=== PATIENT | male | born 1990 | race American Indian/Alaskan Native ===

== ENCOUNTER 2017-08-10 06:12 | Emergency (ER) | payer MEDICAID ==
[2017-08-10] MEDS ORDERED: BACTRIM DS PO ONE (14:40)
[2017-08-10] MEDS ORDERED: TYLENOL PO ONE (14:40)
--- NOTE | 2017-08-10 14:41 | Emergency Department Report ---
ED General Adult HPI - General Chief complaint: Psych Stated complaint: MH Time Seen by Provider: 08/10/17 14:19 Source: patient Mode of arrival: Ambulatory Limitations: No Limitations - History of Present Illness Initial comments: Patient is a 27-year-old male past medical history of depression who presents with suicidal ideation. Patient states that he was feeling depressed today and that he was planning to kill himself. His plan was to go walk in front of traffic. Patient states that he is hearing some voices but he doesn't know what they're saying. Patient has no history of schizophrenia or bipolar disorder. - Related Data Allergies Allergy/AdvReac Type Severity Reaction Status Date / Time Penicillins Allergy Swelling Verified 08/10/17 06:58 ED Review of Systems ROS: Stated complaint: MH Other details as noted in HPI Constitutional: denies: chills, fever Eyes: denies: eye pain, eye discharge, vision change ENT: denies: ear pain, throat pain Respiratory: denies: cough, shortness of breath, wheezing Cardiovascular: denies: chest pain, palpitations Endocrine: no symptoms reported Gastrointestinal: denies: abdominal pain, nausea, diarrhea Genitourinary: denies: urgency, dysuria Musculoskeletal: denies: back pain, joint swelling, arthralgia Skin: denies: rash, lesions Neurological: denies: headache, weakness, paresthesias Psychiatric: depression, suicidal thoughts. denies: anxiety, homicidal thoughts Hematological/Lymphatic: denies: easy bleeding, easy bruising ED Past Medical Hx - Past Medical History Previous Medical History?: Yes Hx Psychiatric Treatment: Yes (depression) - Surgical History Past Surgical History?: No - Social History Smoking Status: Current Every Day Smoker Substance Use Type: None ED Physical Exam - General Limitations: No Limitations General appearance: alert, in no apparent distress - Head Head exam: Present: atraumatic, normocephalic - Eye Eye exam: Present: normal appearance - ENT ENT exam: Present: mucous membranes moist - Neck Neck exam: Present: normal inspection - Respiratory Respiratory exam: Present: normal lung sounds bilaterally. Absent: respiratory distress - Cardiovascular Cardiovascular Exam: Present: regular rate, normal rhythm. Absent: systolic murmur, diastolic murmur, rubs, gallop - GI/Abdominal GI/Abdominal exam: Present: soft, normal bowel sounds - Rectal Rectal exam: Present: deferred - Extremities Exam Extremities exam: Present: other (insect bite on left leg ) - Back Exam Back exam: Present: normal inspection - Neurological Exam Neurological exam: Present: alert, oriented X3 - Psychiatric Psychiatric exam: Present: agitated, suicidal ideation - Skin Skin exam: Present: warm, dry, intact, normal color. Absent: rash ED Course Vital Signs 08/10/17 06:45 Temperature 98 F Pulse Rate 81 Respiratory 18 Rate Blood Pressure 110/74 O2 Sat by Pulse 98 Oximetry ED Medical Decision Making - Lab Data Result diagrams: 08/10/17 14:55 08/10/17 14:55 Lab Results 08/10/17 08/10/17 08/10/17 Range/Units 14:55 14:55 14:55 WBC 5.2 (4.5-11.0) K/mm3 RBC 5.10 H (3.65-5.03) M/mm3 Hgb 13.9 (11.8-15.2) gm/dl Hct 43.0 (35.5-45.6) % MCV 84 (84-94) fl MCH 27 L (28-32) pg MCHC 32 (32-34) % RDW 14.5 (13.2-15.2) % Plt Count 289 (140-440) K/mm3 Lymph % (Auto) 35.4 H (13.4-35.0) % [place] % (Auto) 8.0 H (0.0-7.3) % Eos % (Auto) 1.4 (0.0-4.3) % Baso % (Auto) [employer]ging [employer] Lymph # 1.9 (1.2-5.4) K/mm3 [place] # 0.4 (0.0-0.8) K/mm3 Eos # 0.1 (0.0-0.4) K/mm3 Baso # 0.0 (0.0-0.1) K/mm3 Seg Neutrophils % 54.6 (40.0-70.0) % Seg Neutrophils # 2.9 (1.8-7.7) K/mm3 PT 15.4 H (12.2-14.9) Sec. INR 1.16 H (0.87-1.13) APTT 31.5 (24.2-36.6) Sec. Carbon Dioxide 26 (22-30) mmol/L BUN 12 (9-20) mg/dL Creatinine 0.8 (0.8-1.5) mg/dL Estimated GFR > 60 ml/min BUN/Creatinine Ratio 15 % Glucose 139 H (75-100) mg/dL Calcium 8.4 (8.4-10.2) mg/dL Total Bilirubin 0.20 (0.1-1.2) mg/dL AST 18 (5-40) units/L ALT 18 (7-56) units/L Alkaline Phosphatase 62 (35-129) units/L Total Protein 6.3 (6.3-8.2) g/dL Albumin 3.7 L (3.9-5) g/dL Albumin/Globulin Ratio 1.4 % - Medical Decision Making Chief medical diagnosis: Suicidal ideation secondary to depression Differential medical diagnosis: Substance induced mood disorder, malingering, major depression disorder CBC, CMP, oral pain medication and mental health worker evaluation I will sign a 1013 on this patient due to patient having suicidal ideation. Stress with mental health worker and discussed with patient and they both agree with plan. I also give patient acetaminophen and Bactrim for a possible insect bite on his leg. Critical care attestation.: If time is entered above; I have spent that time in minutes in the direct care of this critically ill patient, excluding procedure time. ED Disposition Clinical Impression: Suicidal ideation Insect bite of leg Qualifiers: Encounter type: initial encounter Laterality: right Qualified Code(s): S80.861A - Insect bite (nonvenomous), right lower leg, initial encounter; W57.XXXA - Bitten or stung by nonvenomous insect and other nonvenomous arthropods, initial encounter; W57.XXXA - Bitten or stung by nonvenomous insect and other nonvenomous arthropods, initial encounter Disposition: DC/TX-65 PSY HOSP/PSY UNIT Is pt being admited?: No Does the pt Need Aspirin: No Condition: Stable Referrals: PRIMARY CARE, [Primary Care Provider] - 3-5 Days
[2017-08-10] MEDS ORDERED: MILK OF MAGNESIA PO PRN (14:56)
[2017-08-10] MEDS ORDERED: ALUM-MAG HYDROX-SIMETH 200-200-20MG/5ML PO PRN (14:56)
[2017-08-10] MEDS ORDERED: TYLENOL PO PRN (14:56)
[2017-08-10 15:28] LABS: Eosinophils % (Auto) 1.4 % (0.0-4.3); Hemoglobin 13.9 gm/dl (11.8-15.2); Mean Corpuscular HGB Conc 32 % (32-34); Mean Corpuscular Hemoglobin 27 pg (28-32); Mean Corpuscular Volume 84 fl (84-94); Platelet Count 289 K/mm3 (140-440); Red Cell Distribution Width 14.5 % (13.2-15.2); White Blood Count 5.2 K/mm3 (4.5-11.0)
[2017-08-10 15:33] LABS: INR 1.16 (0.87-1.13)
[2017-08-10 15:34] LABS: Partial Thromboplastin Time 31.5 Sec. (24.2-36.6)
[2017-08-10 15:35] LABS: Alanine Aminotransferase 18 units/L (7-56); Albumin 3.7 g/dL (3.9-5); Albumin/Globulin Ratio 1.4 %; Alkaline Phosphatase 62 units/L (35-129); Anion Gap 15 mmol/L; BUN/Creatinine Ratio 15; Blood Urea Nitrogen 12 mg/dL (9-20); Calcium 8.4 mg/dL (8.4-10.2); Carbon Dioxide 26 mmol/L (22-30); Chloride 104.5 mmol/L (98-107); Glucose 139 mg/dL (75-100); Potassium 3.9 mmol/L (3.6-5.0); Sodium 142 mmol/L (137-145); Total Protein 6.3 g/dL (6.3-8.2)
[2017-08-10] MEDS ORDERED: NAPROSYN PO ONE (15:40)
[2017-08-11 03:43] LABS: Urine Drugs of Abuse Note Disclamer
[2017-08-11 10:38] VITALS: BP 98/59
--- NOTE | 2017-08-11 15:00 | Consultation ---
History of Present Illness - Reason for Consult Reason for consult: SI Medications and Allergies Allergies Allergy/AdvReac Type Severity Reaction Status Date / Time Penicillins Allergy Swelling Verified 08/10/17 06:58 Home Medications Medication Instructions Recorded Confirmed Last Taken Type No Known Home Medications [No 08/11/17 08/11/17 Unknown History Reported Home Medications] Active Meds: Active Medications Acetaminophen (Tylenol) 650 mg PO Q4HR PRN PRN Reason: Pain MILD(1-3)/Fever >100.5/MARTÍNEZ Al Hydrox/Mg Hydrox/Simethicone (Alum-Mag Hydrox-Simeth [id number]/5ml) 30 ml PO Q4HR PRN PRN Reason: Indigestion Magnesium Hydroxide (Milk Of Magnesia) 30 ml PO Q12HR PRN PRN Reason: Constipation Mental Status Exam - Vital signs Last Vital Signs Temp 98.3 F 08/11/17 10:37 Pulse 79 08/11/17 10:37 Resp 20 08/11/17 13:30 BP 98/59 08/11/17 10:37 Pulse Ox 98 08/11/17 13:30 Results Result Diagrams: 08/10/17 14:55 08/10/17 14:55 Abnormal lab results 08/10/17 08/10/17 08/10/17 Range/Units 14:55 14:55 14:55 RBC 5.10 H (3.65-5.03) M/mm3 MCH 27 L (28-32) pg Lymph % (Auto) 35.4 H (13.4-35.0) % [place] % (Auto) 8.0 H (0.0-7.3) % PT 15.4 H (12.2-14.9) Sec. INR 1.16 H (0.87-1.13) Glucose 139 H (75-100) mg/dL Albumin 3.7 L (3.9-5) g/dL All other labs normal. Assessment and Plan Assessment and plan: CHIEF COMPLAINT IN PATIENTS WORDS: HISTORY OF PRESENT ILLNESS: This is a 27-year-old male with a reported past psychiatric history of MDD who now presents secondary to recent expression of suicidal thoughts after being recently released from [facility]. He was recently at [facility] a few weeks ago. Currently, homeless and no social supports. Not employed. PSYCHIATRIC REVIEW OF SYSTEMS: Substance: UDS - Detoxification/Withdrawal: none noted Depression: Withdrawn, isolated, low moods. [place]a: no labile moods, not hyperverbal, no flight of ideas Psychosis: no AVH, no thought disorder noted, no paranoia/grandiosity/erotomania Anxiety/ OCD/ PTSD: denies somatic symptoms, flashbacks, nightmares, avoidance, panic attacks Suicidality: passive SI Other Self-Injurious Behavior: none currently, no recent SIB noted Violent/ Aggressive Behavior: none noted CURRENT MEDICATIONS: Medication Reconciliation pending ALLERGIES: NKDA PAST PSYCHIATRIC HISTORY: Inpatient: previous IP admissions Outpatient: has no psychiatrist/therapist Prior Suicide Attempts: unknown Prior Self-Injurious Behaviors: unknown PAST PSYCHIATRIC MEDICATION TRIALS: MEDICAL HISTORY: denies MENTAL STATUS EXAM: General Appearance: Dressed in hospital gown, no acute distress Sensorium/Consciousness: alert and responding to external stimuli Eye Contact: limited Attitude / Behavior: cooperative, but guarded Psychomotor & Musculoskeletal Activity: WNL Mood: fine Affect: constricted Speech / Language: normal Thought Processes: organized, logical, linear, goal directed Thought Content: passive SI, no HI Perception: no AVH Orientation: person, place, time, situation Judgment What would you do if you smelled smoke in a crowded movie theater?: poor/impulsive Insight: poor Intelligence Vocabulary, general fund of knowledge, educational level: Average Capacity of ADLs: Independent STRENGTHS: PSYCHOSOCIAL AND ENVIRONMENTAL STRESSORS: ASSESSMENT: MDD PLAN OF CARE: Refer patient for inpatient hospitalization Nursing to reconcile home medications If nursing unable to reconcile the medication, start sertraline 50 mg po qam
== END 2017-08-11 21:09 ==
LOC: ED 06:12
DX: R45.851 Suicidal ideations (principal); S80.861A Insect bite (nonvenomous), right lower leg, initial encounter; F32.9 Major depressive disorder, single episode, unspecified; F17.200 Nicotine dependence, unspecified, uncomplicated; Z88.0 Allergy status to penicillin; W57.XXXA Bitten or stung by nonvenomous insect and other nonvenomous arthropods, initial encounter; Y93.89 Activity, other specified; Y99.8 Other external cause status; Y92.89 Other specified places as the place of occurrence of the external cause
CPT/HCPCS: 36415; 80053; 80307; 85025; 85610; 85730

== ENCOUNTER 2018-01-20 19:18 | Emergency (ER) | payer MEDICAID ==
[2018-01-20 20:04] LABS: Basophils % (Auto) 0.5 % (0.0-1.8); Eosinophils # (Auto) 0.1 K/mm3 (0.0-0.4); Eosinophils % (Auto) 1.2 % (0.0-4.3); Hematocrit 48.3 % (35.5-45.6); Hemoglobin 15.9 gm/dl (11.8-15.2); Lymphocytes # (Auto) 1.9 K/mm3 (1.2-5.4); Mean Corpuscular HGB Conc 33 % (32-34); Mean Corpuscular Hemoglobin 27 pg (28-32); Mean Corpuscular Volume 81 fl (84-94); Monocytes # (Auto) 0.8 K/mm3 (0.0-0.8); Monocytes % (Auto) 14.9 % (0.0-7.3); Platelet Count 347 K/mm3 (140-440); Red Blood Count 5.95 M/mm3 (3.65-5.03); Red Cell Distribution Width 14.8 % (13.2-15.2)
[2018-01-20 20:19] LABS: BUN/Creatinine Ratio 16; Blood Urea Nitrogen 14 mg/dL (9-20); Calcium 8.8 mg/dL (8.4-10.2); Hemolysis Index 18
[2018-01-20 21:30] LABS: Bilirubin,Urine NEG (Negative); Blood,Urine NEG (Negative); Color,Urine Yellow (Yellow); Mucus,Urine 3+ /HPF; Protein,Urine <15 mg/dL mg/dL (Negative)
[2018-01-20 21:48] LABS: Amphetamine Screen,Urine PRESUMPTIVE NEGATIVE; Benzodiazepines Screen,Urine PRESUMPTIVE NEGATIVE; Cannabinoid Screen,Urine PRESUMPTIVE NEGATIVE; Methadone Screen,Urine PRESUMPTIVE NEGATIVE; Opiate Screen,Urine PRESUMPTIVE NEGATIVE
[2018-01-20 21:56] LABS: Cocaine Screen,Urine PRESUMPTIVE POSITIVE
--- NOTE | 2018-01-21 01:55 | Emergency Department Report ---
ED Psych HPI - General Chief Complaint: Psych Stated Complaint: MENTAL HEALTH Time Seen by Provider: 01/20/18 20:15 Source: patient Mode of arrival: Ambulatory - History of Present Illness Initial Comments: Patient is a 27-year-old -[place]er male who states for the past 2 days he 's had suicidal ideations. Patient has a plan of walking in front of traffic. Patient usually takes Prozac and his last dose was yesterday. Patient has no complaints at this time. The patient denies any homicidal ideations or visual or audio hallucinations. Patient does admit to cocaine abuse. - Related Data Home Medications Medication Instructions Recorded Confirmed Last Taken No Known Home Medications [No 08/11/17 01/20/18 Unknown Reported Home Medications] Allergies Allergy/AdvReac Type Severity Reaction Status Date / Time Penicillins Allergy Swelling Verified 08/10/17 06:58 ED Review of Systems ROS: Stated complaint: MENTAL HEALTH Other details as noted in HPI Comment: All other systems reviewed and negative ED Past Medical Hx - Past Medical History Previous Medical History?: Yes Hx Pulmonary Embolism: Yes Hx Psychiatric Treatment: Yes (depression) - Surgical History Past Surgical History?: Yes Additional Surgical History: Samantha ocampo 2013 - Social History Smoking Status: Current Every Day Smoker Substance Use Type: Cocaine - Medications Home Medications: Home Medications Medication Instructions Recorded Confirmed Last Taken Type No Known Home Medications [No 08/11/17 01/20/18 Unknown History Reported Home Medications] ED Physical Exam - General Limitations: No Limitations General appearance: alert, in no apparent distress - Head Head exam: Present: atraumatic, normocephalic - Eye Eye exam: Present: normal appearance - ENT ENT exam: Present: mucous membranes moist - Neck Neck exam: Present: normal inspection - Respiratory Respiratory exam: Present: normal lung sounds bilaterally. Absent: respiratory distress - Cardiovascular Cardiovascular Exam: Present: regular rate, normal rhythm. Absent: systolic murmur, diastolic murmur, rubs, gallop - GI/Abdominal GI/Abdominal exam: Present: soft, normal bowel sounds - Rectal Rectal exam: Present: deferred - Extremities Exam Extremities exam: Present: normal inspection - Back Exam Back exam: Present: normal inspection - Neurological Exam Neurological exam: Present: alert, oriented X3 - Psychiatric Psychiatric exam: Present: normal affect, normal mood - Skin Skin exam: Present: warm, dry, intact, normal color. Absent: rash ED Course Vital Signs 01/20/18 19:24 Temperature 97.3 F L Pulse Rate 88 Respiratory 16 Rate Blood Pressure 134/81 O2 Sat by Pulse 100 Oximetry ED Medical Decision Making - Lab Data Result diagrams: 01/20/18 19:41 01/20/18 19:41 - Medical Decision Making Patient is medically cleared for psych evaluation Critical care attestation.: If time is entered above; I have spent that time in minutes in the direct care of this critically ill patient, excluding procedure time. ED Disposition Condition: Stable Referrals: TARYN WOOD MD [Primary Care Provider] - 3-5 Days
[2018-01-21] MEDS ORDERED: BENADRYL PO ONE (03:20)
[2018-01-21] MEDS ORDERED: BENADRYL PO PRN (03:23)
[2018-01-21] MEDS: XARELTO PO SCH (11:05)
[2018-01-21] MEDS: PROzac PO SCH (11:05)
[2018-01-21] MEDS ORDERED: DESYREL PO SCH (22:00)
[2018-01-22] MEDS: XARELTO PO SCH (09:44)
[2018-01-22] MEDS: PROzac PO SCH (09:44)
[2018-01-22 17:00] VITALS: BP 111/57
== END 2018-01-22 17:07 ==
LOC: ED 19:18
DX: F32.9 Major depressive disorder, single episode, unspecified (principal); F17.200 Nicotine dependence, unspecified, uncomplicated; F14.10 Cocaine abuse, uncomplicated; Z88.0 Allergy status to penicillin
CPT/HCPCS: 36415; 80048; 80307; 81001; 85025; 99285; G0480; 80320

== ENCOUNTER 2019-01-20 21:52 | Emergency (ER) | payer MEDICAID ==
--- NOTE | 2019-01-20 22:16 | Emergency Department Report ---
Blank Doc - Documentation Documentation: 28 y o male with hx of depression presents to ed cc of SI with no spec plan but numerous ways mh labs ordered main ed
[2019-01-20 22:57] LABS: Hematocrit 42.4 % (35.5-45.6); Hemoglobin 14.1 gm/dl (11.8-15.2); Mean Corpuscular HGB Conc 33 % (32-34); Mean Corpuscular Volume 83 fl (84-94); Platelet Count 278 K/mm3 (140-440)
[2019-01-20 23:16] LABS: BUN/Creatinine Ratio 15; Blood Urea Nitrogen 12 mg/dL (9-20); Calcium 8.6 mg/dL (8.4-10.2); Hemolysis Index 27
--- NOTE | 2019-01-20 23:29 | Emergency Department Report ---
ED Psych HPI - General Chief Complaint: Psych Stated Complaint: MH SUICIDAL THOUGHTS Time Seen by Provider: 01/20/19 23:20 Source: patient Mode of arrival: Ambulatory - History of Present Illness Initial Comments: Patient is a 28-year-old male who presents to emergency room with complaints of suicidal ideations with the plan. Patient states he has had multiple ideas of killing himself. Patient states he would most likely take pills in order to overdose and . Patient states he has many ways he would like to kill himself. Patient states he is depressed. Patient states he is taking all her psychiatric medications. Patient denies hallucinations. Patient denies homic idal ideations. MD Complaint: suicidal ideation, feels depressed -: Sudden Associated Psychiatric Symptoms: depression, suicidal ideation History of same: Yes Quality: constant Improves With: none Worsens With: none Associated Symptoms: denies other symptoms. denies: confusion, headache, shortness of breath, nausea, vomiting, syncope, insomnia If Self Harm: admits thoughts of, has plan - Related Data Home Medications Medication Instructions Recorded Confirmed Last Taken FLUoxetine HCL [PROzac] 40 mg PO QDAY 01/21/18 01/21/18 01/20/18 Rivaroxaban [Xarelto] 20 mg PO QDAY 01/21/18 01/21/18 01/20/18 diphenhydrAMINE [Benadryl CAP] 50 mg PO QHS PRN 01/21/18 01/21/18 01/20/18 traZODone [Desyrel] 200 mg PO QHS 01/21/18 01/21/18 01/20/18 Allergies Allergy/AdvReac Type Severity Reaction Status Date / Time Penicillins Allergy Swelling Verified 08/10/17 06:58 ED Review of Systems ROS: Stated complaint: MH SUICIDAL THOUGHTS Other details as noted in HPI Constitutional: denies: chills, fever Eyes: denies: eye pain, eye discharge, vision change ENT: denies: ear pain, throat pain Respiratory: denies: cough, shortness of breath, wheezing Cardiovascular: denies: chest pain, palpitations Endocrine: no symptoms reported Gastrointestinal: denies: abdominal pain, nausea, diarrhea Genitourinary: denies: urgency, dysuria Musculoskeletal: denies: back pain, joint swelling, arthralgia Skin: denies: rash, lesions Neurological: denies: headache, weakness, paresthesias, confusion Psychiatric: depression, suicidal thoughts. denies: anxiety, auditory halluc inations, visual hallucinations, homicidal thoughts Hematological/Lymphatic: denies: easy bleeding, easy bruising ED Past Medical Hx - Past Medical History Previous Medical History?: Yes Hx Pulmonary Embolism: Yes Hx Psychiatric Treatment: Yes (depression) - Surgical History Past Surgical History?: Yes Additional Surgical History: R aka 2013 - Family History Family history: no significant - Social History Smoking Status: Current Every Day Smoker Substance Use Type: Alcohol, Cocaine - Medications Home Medications: Home Medications Medication Instructions Recorded Confirmed Last Taken Type FLUoxetine HCL [PROzac] 40 mg PO QDAY 01/21/18 01/21/18 01/20/18 History Rivaroxaban [Xarelto] 20 mg PO QDAY 01/21/18 01/21/18 01/20/18 History diphenhydrAMINE [Benadryl CAP] 50 mg PO QHS PRN 01/21/18 01/21/18 01/20/18 History traZODone [Desyrel] 200 mg PO QHS 01/21/18 01/21/18 01/20/18 History ED Physical Exam - General Limitations: No Limitations General appearance: alert, in no apparent distress - Head Head exam: Present: atraumatic, normocephalic - Eye Eye exam: Present: normal appearance - ENT ENT exam: Present: mucous membranes moist - Neck Neck exam: Present: normal inspection - Respiratory Respiratory exam: Present: normal lung sounds bilaterally. Absent: respiratory distress - Cardiovascular Cardiovascular Exam: Present: regular rate, normal rhythm. Absent: systolic murmur, diastolic murmur, rubs, gallop - GI/Abdominal GI/Abdominal exam: Present: soft, normal bowel sounds - Rectal Rectal exam: Present: deferred - Extremities Exam Extremities exam: Present: normal inspection - Back Exam Back exam: Present: normal inspection - Neurological Exam Neurological exam: Present: alert, oriented X3 - Psychiatric Psychiatric exam: Present: depressed, suicidal ideation - Skin Skin exam: Present: warm, dry, intact, normal color. Absent: rash ED Course Vital Signs 01/20/19 01/20/19 21:56 22:13 Temperature 97.5 F L 97.5 F L Pulse Rate 75 75 Respiratory 18 18 Rate Blood Pressure 128/91 128/91 O2 Sat by Pulse 99 99 Oximetry - Reevaluation(s) Reevaluation #1: Upon initial evaluation patient was placed on 1013. Patient will remain as an ER hold. Patient is medically clear. Patient will remain on a 1013 and in the ER until accepted in to appropriate psychiatric facility 01/21/19 00:34 ED Medical Decision Making - Lab Data Result diagrams: 01/20/19 22:33 01/20/19 22:33 - Medical Decision Making Patient is a 28-year-old male that presents December and was suicidal ideation with plan. Patient placed on 1013. Patient's labs done and were unremarkable. Patient medically cleared. - Differential Diagnosis suicidal ideation. Depression. Critical care attestation.: If time is entered above; I have spent that time in minutes in the direct care of this critically ill patient, excluding procedure time. ED Disposition Clinical Impression: Suicidal ideation Depression Qualifiers: Depression Type: unspecified Qualified Code(s): F32.9 - Major depressive disorder, single episode, unspecified Disposition: DC/TX-65 PSY HOSP/PSY UNIT Is pt being admited?: No Does the pt Need Aspirin: No Condition: Stable Referrals: SANYA JUNG MD [Primary Care Provider] - 3-5 Days Time of Disposition: 00:35
[2019-01-21 01:51] LABS: Amphetamine Screen,Urine PRESUMPTIVE NEGATIVE; Benzodiazepines Screen,Urine PRESUMPTIVE NEGATIVE; Cannabinoid Screen,Urine PRESUMPTIVE NEGATIVE; Methadone Screen,Urine PRESUMPTIVE NEGATIVE; Opiate Screen,Urine PRESUMPTIVE NEGATIVE
[2019-01-21 01:59] LABS: Bilirubin,Urine NEG (Negative); Blood,Urine NEG (Negative); Color,Urine Yellow (Yellow); Mucus,Urine FEW /HPF; Protein,Urine <15 mg/dL mg/dL (Negative); RBC,Urine < 1.0 /HPF (0.0-6.0); Urobilinogen,Urine < 2.0 mg/dL (<2.0)
[2019-01-21 02:27] LABS: Cocaine Screen,Urine PRESUMPTIVE POSITIVE
[2019-01-21 03:33] LABS: Anisocytosis 1+; Basophils % (Manual) 0 % (0.0-1.8); Eosinophils % (Manual) 0 % (0.0-4.3); Total Cells Counted 100
[2019-01-21 03:34] LABS: Platelet Estimate Consistent w Auto
--- NOTE | 2019-01-21 10:28 | Consultation ---
History of Present Illness - Reason for Consult Consult date: 01/21/19 Reason for consult: Mental Health Evaluation Requesting physician: HUMBERTO REDMOND III - Chief Complaint Chief complaint: "I am depressed" - History of Present Psychiatric Illness 28 y.o. AA male who presented to the ER for SI's. Today the patient is calm and cooperative during the assessment. He stated that he is dealing with a lot of life stressors at this time. 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 He stated that he is homeless at currently with no family support. He would not confirm or deny if he attempted suicide in the past. He continues to endorse SI's when asked. He is adamant that he need help for his depression. He rate his depression 8/10, with 10 being the worse. He denies HI's and AVH's. He acknowledged erratic sleep and a poor appetite. He stated that he self medicate with cocaine to lower his depression. He denies alcohol consumption (etoh). Medications and Allergies Allergies Allergy/AdvReac Type Severity Reaction Status Date / Time Penicillins Allergy Swelling Verified 08/10/17 06:58 Home Medications Medication Instructions Recorded Confirmed Last Taken Type FLUoxetine HCL [PROzac] 40 mg PO QDAY 01/21/18 01/22/19 01/20/18 History Rivaroxaban [Xarelto] 20 mg PO QDAY 01/21/18 01/22/19 01/20/18 History diphenhydrAMINE [Benadryl CAP] 50 mg PO QHS PRN 01/21/18 01/22/19 01/20/18 History traZODone [Desyrel] 200 mg PO QHS 01/21/18 01/22/19 01/20/18 History Past psychiatric history - Past Medical History Past Surgical History: Other (Right AKA) Mental Status Exam - Vital signs Last Vital Signs Temp 98.0 F 01/21/19 07:30 Pulse 80 01/21/19 07:30 Resp 18 01/21/19 07:30 BP 106/75 01/21/19 07:30 Pulse Ox 97 01/21/19 07:30 - Exam Narrative exam: MSE: Appearance: calm, cooperative Behavior: regular eye contact Speech: regular rate and tone Mood: "depressed" withdrawn Affect: flat Thought Process: circumstantial Thought Content: denies SI/HI and AVH's Motor Activity: ambulatory Cognition: A/Ox 3 Insight: variable to fair Judgment: poor Results Result Diagrams: 01/20/19 22:33 01/20/19 22:33 Abnormal lab results 01/20/19 01/20/19 01/20/19 Range/Units 22:33 22:33 22:33 WBC 3.9 L (4.5-11.0) K/mm3 RBC 5.10 H (3.65-5.03) M/mm3 MCV 83 L (84-94) fl RDW 17.0 H (13.2-15.2) % Seg Neuts % (Manual) 35.0 L (40.0-70.0) % Lymphocytes % (Manual) 56.0 H (13.4-35.0) % Monocytes % (Manual) 9.0 H (0.0-7.3) % Seg Neutrophils # Man 1.4 L (1.8-7.7) K/mm3 Carbon Dioxide 21 L (22-30) mmol/L Glucose 101 H (75-100) mg/dL Salicylates < 0.3 L (2.8-20.0) mg/dL Acetaminophen (10.0-30.0) ug/mL Phenytoin 1.0 L (10.0-20.0) ug/mL Carbamazepine 2.0 L (4-12) ug/mL 01/20/19 Range/Units 22:33 WBC (4.5-11.0) K/mm3 RBC (3.65-5.03) M/mm3 MCV (84-94) fl RDW (13.2-15.2) % Seg Neuts % (Manual) (40.0-70.0) % Lymphocytes % (Manual) (13.4-35.0) % Monocytes % (Manual) (0.0-7.3) % Seg Neutrophils # Man (1.8-7.7) K/mm3 Carbon Dioxide (22-30) mmol/L Glucose (75-100) mg/dL Salicylates (2.8-20.0) mg/dL Acetaminophen < 5.0 L (10.0-30.0) ug/mL Phenytoin (10.0-20.0) ug/mL Carbamazepine (4-12) ug/mL All other labs normal. Assessment and Plan Assessment and plan: Impression: MDD, severe Tuype. Substance Use DO (cocaine). Today patient is calm and cooperative during the assessment. The patient endorsed SI's. DDx: R/O Bipolar DO. Substance Induced Mood DO Recommendation/Plan: Continue 1013 and start Remeron 15 mg PO HS for depression. Discussed possible suicidality/medication induced juliet with patient reference Remeron. Dispo: The patient was referred to inpatient psy services. Staffed with Dr Jose Kennedy.
[2019-01-21] MEDS ORDERED: REMERON PO SCH (22:00)
--- NOTE | 2019-01-22 07:18 | Emergency Department Report ---
Blank Doc - Documentation Documentation: Requested to reinitiate the patient's Xarelto by L[address]. Pt has been n/c he states. H/o protien C and previous VTE. Lifelong anticoagulation inidcated. Restated Xarelto. Pt is asymptommatic re: sx of VTE.
[2019-01-22] MEDS ORDERED: XARELTO PO SCH (08:00)
--- NOTE | 2019-01-22 14:02 | Progress Note ---
Subjective - Reason for Consult Consult date: 01/22/19 Reason for consult: Psychiatry Follow up - Chief Complaint Chief complaint: "Nothing has changed" 28 y.o. AA male who presented to the ER for SI's. Today the patient is calm and cooperative during the assessment. He stated that he still feel the same "mentally." He stated the he did get sleep last night. Throughout the interview the patient's eye contact was poor. He denies Hi's and AVH's. He denies any side effects of his medication. Mental Status Exam - Vital signs Last Vital Signs Temp 98.2 F 01/22/19 10:03 Pulse 71 01/22/19 10:03 Resp 16 01/22/19 08:30 BP 85/55 01/22/19 10:03 Pulse Ox 96 01/22/19 08:30 - Exam Narrative exam: MSE: Appearance: calm, cooperative Behavior: regular eye contact Speech: regular rate and tone Mood: withdrawn Affect: flat Thought Process: circumstantial Thought Content: denies SI/HI and AVH's Motor Activity: ambulatory Cognition: A/Ox 3 Insight: variable to fair Judgment: poor Assessment and Plan Impression: MDD, severe Tuype. Substance Use DO (cocaine). Today patient is calm and cooperative during the assessment. The patient endorsed SI's. DDx: R/O Bipolar DO. Substance Induced Mood DO Recommendation/Plan: Continue 1013 and Remeron 15 mg PO HS for depression. Di scussed possible suicidality/medication induced juliet with patient reference Remeron. Dispo: The patient was referred to inpatient psy services. Will staff with Dr Jose Kennedy.
[2019-01-22 17:03] VITALS: BP 107/70
== END 2019-01-22 18:54 ==
LOC: EEVIPCON 21:52 → ED 21:52
DX: F32.3 Major depressive disorder, single episode, severe with psychotic features (principal); F17.200 Nicotine dependence, unspecified, uncomplicated; F14.10 Cocaine abuse, uncomplicated; Z86.711 Personal history of pulmonary embolism; Z88.0 Allergy status to penicillin
CPT/HCPCS: 36415; 80048; 80156; 80178; 80185; 80307; 81001; 85007; 85025; 99285; G0480; 80320

== ENCOUNTER 2019-03-19 13:05 | Emergency (ER) | payer MEDICAID ==
[2019-03-19] MEDS ORDERED: ATIVAN IM PRN (13:26)
[2019-03-19] MEDS ORDERED: HALDOL IM PRN (13:26)
--- NOTE | 2019-03-19 13:32 | Emergency Department Report ---
ED General Adult HPI - General Chief complaint: Psych Stated complaint: SI Time Seen by Provider: 03/19/19 13:25 Source: patient, RN notes reviewed, old records reviewed Mode of arrival: Ambulatory Limitations: No Limitations - History of Present Illness Initial comments: This is a 28-year-old gentleman. The patient reports a history of homelessness, history of right lower extremity above-knee amputation, reported history of chronic anticoagulation use, currently on xarelto; he reports his last dose was 2 days ago. He presents to the emergency room today with a complaint of suicidality. He does not have a plan. He has not tried to overdose. He indicates that he has access to guns, firearms. He has no physical pain at this time. He is asking to eat. He states he is homeless, and indicates he does not have anywhere to live. He denies headache, neck pain, chest pain, abdominal pain, shortness of breath. He denies irritative, obstructive urinary symptoms. He is not able to comment on the exacerbating, relieving factors in terms of his suicidality. -: Gradual Quality: other Consistency: other Improves with: other Worsens with: other - Related Data Home Medications Medication Instructions Recorded Confirmed Last Taken FLUoxetine HCL [PROzac] 40 mg PO QDAY 01/21/18 01/22/19 01/20/18 Rivaroxaban [Xarelto] 20 mg PO QDAY 01/21/18 01/22/19 01/20/18 diphenhydrAMINE [Benadryl CAP] 50 mg PO QHS PRN 01/21/18 01/22/19 01/20/18 traZODone [Desyrel] 200 mg PO QHS 01/21/18 01/22/19 01/20/18 Allergies Allergy/AdvReac Type Severity Reaction Status Date / Time Penicillins Allergy Swelling Verified 03/19/19 13:07 ED Review of Systems ROS: Stated complaint: SI Other details as noted in HPI Constitutional: denies: fever Eyes: denies: eye discharge ENT: denies: epistaxis Respiratory: denies: cough Cardiovascular: denies: chest pain Gastrointestinal: denies: abdominal pain Genitourinary: denies: dysuria Musculoskeletal: denies: back pain Skin: denies: lesions Neurological: denies: headache Psychiatric: suicidal thoughts ED Past Medical Hx - Past Medical History Hx Pulmonary Embolism: Yes Hx Psychiatric Treatment: Yes (depression) - Surgical History Additional Surgical History: R aka 2013 - Social History Smoking Status: Current Every Day Smoker - Medications Home Medications: Home Medications Medication Instructions Recorded Confirmed Last Taken Type FLUoxetine HCL [PROzac] 40 mg PO QDAY 01/21/18 01/22/19 01/20/18 History Rivaroxaban [Xarelto] 20 mg PO QDAY 01/21/18 01/22/19 01/20/18 History diphenhydrAMINE [Benadryl CAP] 50 mg PO QHS PRN 01/21/18 01/22/19 01/20/18 History traZODone [Desyrel] 200 mg PO QHS 01/21/18 01/22/19 01/20/18 History ED Physical Exam - General Limitations: No Limitations General appearance: alert, in no apparent distress - Head Head exam: Present: atraumatic, normocephalic - Eye Eye exam: Present: normal appearance, EOMI. Absent: nystagmus - ENT ENT exam: Present: normal exam, normal orophraynx, mucous membranes moist, normal external ear exam - Neck Neck exam: Present: normal inspection, full ROM. Absent: tenderness, meningismus - Respiratory Respiratory exam: Present: normal lung sounds bilaterally. Absent: respiratory distress, wheezes, rales, rhonchi, stridor, chest wall tenderness, accessory muscle use, decreased breath sounds, prolonged expiratory - Cardiovascular Cardiovascular Exam: Present: regular rate, normal rhythm, normal heart sounds. Absent: bradycardia, tachycardia, irregular rhythm, systolic murmur, diastolic murmur, rubs, gallop - GI/Abdominal GI/Abdominal exam: Present: soft. Absent: distended, tenderness, guarding, rebound, rigid, pulsatile mass - Rectal Rectal exam: Present: deferred - Extremities Exam Extremities exam: Present: normal inspection, full ROM, other (2+ pulses noted in the bilateral upper extremities. Right lower extremity status post above-kne e amputation, prosthesis is reviewed and appreciated.). Absent: calf tenderness - Back Exam Back exam: Present: normal inspection, full ROM. Absent: tenderness, CVA tenderness (R), CVA tenderness (L), paraspinal tenderness, vertebral tenderness - Neurological Exam Neurological exam: Present: alert, oriented X3, normal gait, other (Extraocular movements intact. Tongue midline. No facial droop. Facial sensation intact to light touch in the V1, V2, V3 distribution bilaterally. 5 and 5 strength in 4 extremities.. Sensation is intact to light touch in 4 extremities.). Absent: motor sensory deficit - Psychiatric Psychiatric exam: Present: depressed, suicidal ideation - Skin Skin exam: Present: warm, dry, intact, normal color. Absent: rash ED Course Vital Signs 03/19/19 03/19/19 03/19/19 13:11 13:41 13:48 Temperature 97.9 F 98 F Pulse Rate 87 84 Respiratory 16 16 18 Rate Blood Pressure 121/85 Blood Pressure 110/81 [Left] O2 Sat by Pulse 98 98 98 Oximetry ED Medical Decision Making - Lab Data Result diagrams: 03/19/19 13:21 03/19/19 13:21 Vital Signs 03/19/19 03/19/19 03/19/19 13:11 13:41 13:48 Temperature 97.9 F 98 F Pulse Rate 87 84 Respiratory 16 16 18 Rate Blood Pressure 121/85 Blood Pressure 110/81 [Left] O2 Sat by Pulse 98 98 98 Oximetry Lab Results 03/19/19 03/19/19 03/19/19 Range/Units 13:21 13:21 13:21 WBC 4.4 L (4.5-11.0) K/mm3 RBC 5.12 H (3.65-5.03) M/mm3 Hgb 14.1 (11.8-15.2) gm/dl Hct 42.7 (35.5-45.6) % MCV 83 L (84-94) fl MCH 28 (28-32) pg MCHC 33 (32-34) % RDW 15.1 (13.2-15.2) % Plt Count 300 (140-440) K/mm3 Lymph % (Auto) 38.4 H (13.4-35.0) % [place] % (Auto) 10.5 H (0.0-7.3) % Eos % (Auto) 1.1 (0.0-4.3) % Baso % (Auto) 0.3 (0.0-1.8) % Lymph # 1.7 (1.2-5.4) K/mm3 [place] # 0.5 (0.0-0.8) K/mm3 Eos # 0.0 (0.0-0.4) K/mm3 Baso # 0.0 (0.0-0.1) K/mm3 Seg Neutrophils % 49.7 (40.0-70.0) % Seg Neutrophils # 2.2 (1.8-7.7) K/mm3 Sodium 138 (137-145) mmol/L Potassium 4.2 (3.6-5.0) mmol/L Chloride 102.3 (98-107) mmol/L Carbon Dioxide 24 (22-30) mmol/L Anion Gap 16 mmol/L BUN 10 (9-20) mg/dL Creatinine 0.9 (0.8-1.5) mg/dL Estimated GFR > 60 ml/min BUN/Creatinine Ratio 11 % Glucose 104 H (75-100) mg/dL Calcium 8.7 (8.4-10.2) mg/dL Total Creatine Kinase (55-170) units/L Salicylates < 0.3 L (2.8-20.0) mg/dL Acetaminophen (10.0-30.0) ug/mL Plasma/Serum Alcohol (0-0.07) % 03/19/19 03/19/19 03/19/19 Range/Units 13:27 13:27 13:28 WBC (4.5-11.0) K/mm3 RBC (3.65-5.03) M/mm3 Hgb (11.8-15.2) gm/dl Hct (35.5-45.6) % MCV (84-94) fl MCH (28-32) pg MCHC (32-34) % RDW (13.2-15.2) % Plt Count (140-440) K/mm3 Lymph % (Auto) (13.4-35.0) % [place] % (Auto) (0.0-7.3) % Eos % (Auto) (0.0-4.3) % Baso % (Auto) (0.0-1.8) % Lymph # (1.2-5.4) K/mm3 [place] # (0.0-0.8) K/mm3 Eos # (0.0-0.4) K/mm3 Baso # (0.0-0.1) K/mm3 Seg Neutrophils % (40.0-70.0) % Seg Neutrophils # (1.8-7.7) K/mm3 Sodium (137-145) mmol/L Potassium (3.6-5.0) mmol/L Chloride (98-107) mmol/L Carbon Dioxide (22-30) mmol/L Anion Gap mmol/L BUN (9-20) mg/dL Creatinine (0.8-1.5) mg/dL Estimated GFR ml/min BUN/Creatinine Ratio % Glucose (75-100) mg/dL Calcium (8.4-10.2) mg/dL Total Creatine Kinase 125 (55-170) units/L Salicylates (2.8-20.0) mg/dL Acetaminophen < 5.0 L (10.0-30.0) ug/mL Plasma/Serum Alcohol < 0.01 (0-0.07) % - Medical Decision Making Differential diagnosis, including not limited to: Depression, suicidality, homelessness, secondary gain Assessment and plan: 28-year-old gentleman who reports a complaint of suicidality, with no discrete plan, and secondary complaint of being hungry and being homeless. Suspect patient has secondary gain as his primary motivation for presenting. His screening laboratory studies are unremarkable. His physical exam is unremarkable. Given his endorsement of suicidality and easy access to guns, firearms, the patient is placed on a 1013. A psychiatric consultation is requested. Outpatient medication is continued. The patient at this point time does not appear to have any immediate medical contraindication to psychiatric admission, evaluation, consultation, placement. Crisis team is informed. Critical care attestation.: If time is entered above; I have spent that time in minutes in the direct care of this critically ill patient, excluding procedure time. ED Disposition Clinical Impression: Homelessness, Medical clearance for psychiatric admission Disposition: [id number]/TX-65 PSY HOSP/PSY UNIT Is pt being admited?: No Does the pt Need Aspirin: No Condition: Good
[2019-03-19 13:50] LABS: Basophils % (Auto) 0.3 % (0.0-1.8); Eosinophils % (Auto) 1.1 % (0.0-4.3); Hematocrit 42.7 % (35.5-45.6); Hemoglobin 14.1 gm/dl (11.8-15.2); Lymphocytes # (Auto) 1.7 K/mm3 (1.2-5.4); Lymphocytes % (Auto) 38.4 % (13.4-35.0); Mean Corpuscular HGB Conc 33 % (32-34); Mean Corpuscular Volume 83 fl (84-94); Monocytes # (Auto) 0.5 K/mm3 (0.0-0.8); Monocytes % (Auto) 10.5 % (0.0-7.3); Platelet Count 300 K/mm3 (140-440); Red Blood Count 5.12 M/mm3 (3.65-5.03); Red Cell Distribution Width 15.1 % (13.2-15.2)
[2019-03-19 14:03] LABS: BUN/Creatinine Ratio 11; Blood Urea Nitrogen 10 mg/dL (9-20); Calcium 8.7 mg/dL (8.4-10.2); Hemolysis Index 9
--- NOTE | 2019-03-19 14:23 | Consultation ---
History of Present Illness - Reason for Consult Consult date: 03/19/19 Reason for consult: Mental Health Evaluation Requesting physician: TARYN GRULLON - Chief Complaint Chief complaint: "My life is worthless" - History of Present Psychiatric Illness 28 y.o. AA male who presented to the ER for SI's. This patient is known to me. Today the the patient is calm during the assessment. He stated he is tired of being homeless and decided to overdose on cocaine 2 days ago. He stated that his life is "awful." He stated that he does not have a support system in place. He rate his depression 7/10, with 10 being the wore. He would not confirm or deny SI's when asked. He denies HI's and AVH's. He denies erratic sleep and a poor appetite. he stated that he take Prozac for depression. Medications and Allergies Allergies Allergy/AdvReac Type Severity Reaction Status Date / Time Penicillins Allergy Swelling Verified 03/19/19 13:07 Home Medications Medication Instructions Recorded Confirmed Last Taken Type FLUoxetine HCL [PROzac] 40 mg PO QDAY 01/21/18 01/22/19 01/20/18 History Rivaroxaban [Xarelto] 20 mg PO QDAY 01/21/18 01/22/19 01/20/18 History diphenhydrAMINE [Benadryl CAP] 50 mg PO QHS PRN 01/21/18 01/22/19 01/20/18 History traZODone [Desyrel] 200 mg PO QHS 01/21/18 01/22/19 01/20/18 History Active Meds: Active Medications Haloperidol Lactate (Haldol) 5 mg IM Q6HR PRN PRN Reason: Agitation Lorazepam (Ativan) 2 mg IM Q4HR PRN PRN Reason: Agitation Past psychiatric history - Past Medical History Past Medical History: other Past Surgical History: Other (Right AKA) - past Psychiatric treatment and history psychiatric treatment history: Several inpatient psy settings in the past. Denies a fam psy hx. - Social History Social history: other (Homeless) Mental Status Exam - Vital signs Last Vital Signs Temp 98 F 03/19/19 13:48 Pulse 84 03/19/19 13:48 Resp 18 03/19/19 13:48 BP 110/81 03/19/19 13:48 Pulse Ox 98 03/19/19 13:48 - Exam Narrative exam: MSE: Appearance: calm, cooperative Behavior: regular eye contact Speech: regular rate and tone Mood: withdrawn Affect: flat Thought Process: circumstantial Thought Content: denies HI's and AVH's Motor Activity: ambulatory Cognition: A/Ox 3 Insight: variable Judgment: poor Results Result Diagrams: 03/19/19 13:21 03/19/19 13:21 Abnormal lab results 03/19/19 03/19/19 03/19/19 Range/Units 13:21 13:21 13:21 WBC 4.4 L (4.5-11.0) K/mm3 RBC 5.12 H (3.65-5.03) M/mm3 MCV 83 L (84-94) fl Lymph % (Auto) 38.4 H (13.4-35.0) % [place] % (Auto) 10.5 H (0.0-7.3) % Glucose 104 H (75-100) mg/dL Salicylates < 0.3 L (2.8-20.0) mg/dL Acetaminophen (10.0-30.0) ug/mL 03/19/19 Range/Units 13:27 WBC (4.5-11.0) K/mm3 RBC (3.65-5.03) M/mm3 MCV (84-94) fl Lymph % (Auto) (13.4-35.0) % [place] % (Auto) (0.0-7.3) % Glucose (75-100) mg/dL Salicylates (2.8-20.0) mg/dL Acetaminophen < 5.0 L (10.0-30.0) ug/mL All other labs normal. Assessment and Plan Assessment and plan: Impression: MDD, severe Type. Today patient is calm during the assessment. The patient would not confirm or deny SI's. Pending UA/UDS. DDx: R/O Bipolar DO Recommendation/Plan: Continue 1013 and start Prozac 20 mg PO daily for depression. Discussed possible suicidality/medication induced juliet with patient reference Prozac, he verbalized understanding. Dispo: The patient will be referred to inpatient psy services. Will staff with Dr Joes Kennedy.
[2019-03-19] MEDS ORDERED: TYLENOL PO PRN (15:05)
[2019-03-19] MEDS: PROzac PO SCH (17:55)
[2019-03-19] MEDS: XARELTO PO SCH (17:56)
[2019-03-19] MEDS ORDERED: MACROBID ONE (23:51)
[2019-03-20 00:01] LABS: Bilirubin,Urine NEG (Negative); Blood,Urine NEG (Negative); Color,Urine Yellow (Yellow); Mucus,Urine 2+ /HPF; Protein,Urine <15 mg/dL mg/dL (Negative)
[2019-03-20 00:09] LABS: Amphetamine Screen,Urine PRESUMPTIVE NEGATIVE; Benzodiazepines Screen,Urine PRESUMPTIVE NEGATIVE; Cannabinoid Screen,Urine PRESUMPTIVE NEGATIVE; Methadone Screen,Urine PRESUMPTIVE NEGATIVE; Opiate Screen,Urine PRESUMPTIVE NEGATIVE
[2019-03-20 00:42] LABS: Cocaine Screen,Urine PRESUMPTIVE POSITIVE
[2019-03-20] MEDS: XARELTO PO SCH (10:55)
[2019-03-20] MEDS: PROzac PO SCH (10:55)
[2019-03-20 11:43] VITALS: BP 114/79
== END 2019-03-20 11:44 ==
LOC: ED 13:05 → EEVIPCON 13:05 → ED 03-20 11:44
DX: F32.9 Major depressive disorder, single episode, unspecified (principal); F17.200 Nicotine dependence, unspecified, uncomplicated; Z59.0 Homelessness; Z88.0 Allergy status to penicillin; Z89.611 Acquired absence of right leg above knee; Z86.711 Personal history of pulmonary embolism
CPT/HCPCS: 36415; 80048; 80307; 81001; 82550; 85025; 99285; G0480; 80320

== ENCOUNTER 2019-09-24 17:53 | Emergency (ER) | payer MEDICAID ==
[2019-09-24 19:21] LABS: Basophils % (Auto) 0.4 % (0.0-1.8); Eosinophils % (Auto) 0.5 % (0.0-4.3); Hematocrit 45.6 % (35.5-45.6); Hemoglobin 15.2 gm/dl (11.8-15.2); Lymphocytes # (Auto) 2.2 K/mm3 (1.2-5.4); Lymphocytes % (Auto) 37.5 % (13.4-35.0); Mean Corpuscular HGB Conc 33 % (32-34); Mean Corpuscular Volume 82 fl (84-94); Monocytes # (Auto) 0.5 K/mm3 (0.0-0.8); Monocytes % (Auto) 8.2 % (0.0-7.3); Platelet Count 262 K/mm3 (140-440); Red Blood Count 5.56 M/mm3 (3.65-5.03); Red Cell Distribution Width 15.8 % (13.2-15.2)
[2019-09-24 19:29] LABS: INR 1.59 (0.87-1.13)
[2019-09-24 19:47] LABS: BUN/Creatinine Ratio 11; Blood Urea Nitrogen 11 mg/dL (9-20); Calcium 8.9 mg/dL (8.4-10.2); Hemolysis Index 40
[2019-09-24 20:02] LABS: Alanine Aminotransferase 15 units/L (7-56); Albumin 4.3 g/dL (3.9-5)
[2019-09-24 20:12] LABS: Bilirubin,Direct < 0.2 mg/dL (0-0.2)
--- NOTE | 2019-09-24 20:57 | Emergency Department Report ---
ED General Adult HPI - General Chief complaint: Extremity Injury, Lower Stated complaint: LEG PAIN Time Seen by Provider: 09/24/19 19:20 Source: patient, EMS Mode of arrival: Ambulatory Limitations: Physical Limitation - History of Present Illness Initial comments: The patient presents to the emergency department with a chief complaint of numbness of his left foot. Patient has a history of protein C and states that he's had arterial blockages and he will blockages of both venule and arterial in nature in the past. Patient states greater than 3 years ago he had a fem-pop bypass of the right leg that was not effective thus resulting in amputation of his right leg. Patient states today after shaving at 5 PM this morning he noticed that his left leg was a little numb and his toes felt cold. Patient states he takes her alto daily and has not missed a dose -: Sudden Location: lower extremity Radiation: non-radiation Severity scale (0 -10): 0 Consistency: constant Improves with: none Worsens with: none Associated Symptoms: denies other symptoms Treatments Prior to Arrival: none - Related Data Home Medications Medication Instructions Recorded Confirmed Last Taken FLUoxetine HCL [PROzac] 40 mg PO QDAY 01/21/18 03/19/19 01/20/18 Rivaroxaban [Xarelto] 20 mg PO QDAY 01/21/18 03/19/19 01/20/18 diphenhydrAMINE [Benadryl CAP] 50 mg PO QHS PRN 01/21/18 03/19/19 01/20/18 traZODone [Desyrel] 200 mg PO QHS 01/21/18 03/19/19 01/20/18 Allergies Allergy/AdvReac Type Severity Reaction Status Date / Time Penicillins Allergy Swelling Verified 03/19/19 13:07 ED Review of Systems ROS: Stated complaint: LEG PAIN Other details as noted in HPI Comment: All other systems reviewed and negative Constitutional: denies: chills, fever Eyes: denies: eye pain, eye discharge, vision change ENT: denies: ear pain, throat pain Respiratory: denies: cough, shortness of breath, wheezing Cardiovascular: denies: chest pain, palpitations Endocrine: no symptoms reported Gastrointestinal: denies: abdominal pain, nausea, diarrhea Genitourinary: denies: urgency, dysuria Musculoskeletal: denies: back pain, joint swelling, arthralgia Skin: denies: rash, lesions Neurological: denies: headache, weakness, paresthesias Psychiatric: denies: anxiety, depression Hematological/Lymphatic: denies: easy bleeding, easy bruising ED Past Medical Hx - Past Medical History Previous Medical History?: Yes Hx Deep Vein Thrombosis: Yes (PE, DVT) Hx Pulmonary Embolism: Yes Hx Psychiatric Treatment: Yes (depression) Additional medical history: Protein C Deficiency - Surgical History Past Surgical History?: Yes Additional Surgical History: Samantha ocampo 2013 - Social History Smoking Status: Never Smoker Substance Use Type: None - Medications Home Medications: Home Medications Medication Instructions Recorded Confirmed Last Taken Type FLUoxetine HCL [PROzac] 40 mg PO QDAY 01/21/18 03/19/19 01/20/18 History Rivaroxaban [Xarelto] 20 mg PO QDAY 01/21/18 03/19/19 01/20/18 History diphenhydrAMINE [Benadryl CAP] 50 mg PO QHS PRN 01/21/18 03/19/19 01/20/18 History traZODone [Desyrel] 200 mg PO QHS 01/21/18 03/19/19 01/20/18 History ED Physical Exam - General Limitations: Physical Limitation General appearance: alert, in no apparent distress - Head Head exam: Present: atraumatic, normocephalic - Eye Eye exam: Present: normal appearance, PERRL, EOMI - ENT ENT exam: Present: mucous membranes moist - Neck Neck exam: Present: normal inspection - Respiratory Respiratory exam: Present: normal lung sounds bilaterally. Absent: respiratory distress - Cardiovascular Cardiovascular Exam: Present: regular rate, normal rhythm. Absent: systolic murmur, diastolic murmur, rubs, gallop - GI/Abdominal GI/Abdominal exam: Present: soft, normal bowel sounds - Extremities Exam Extremities exam: Present: other (physical right [id number] amputation; left foot is cool to touch but there is her dorsalis pedis and posterior tibialis pulses felt on exam.) - Back Exam Back exam: Present: normal inspection - Neurological Exam Neurological exam: Present: alert, oriented X3, CN II-XII intact. Absent: motor sensory deficit - Psychiatric Psychiatric exam: Present: normal affect, normal mood - Skin Skin exam: Present: warm, dry, intact, normal color. Absent: rash ED Course Vital Signs 09/24/19 18:04 Temperature 98.6 F Pulse Rate 83 Respiratory 16 Rate Blood Pressure 138/81 [Right] O2 Sat by Pulse 96 Oximetry ED Medical Decision Making - Lab Data Result diagrams: 09/24/19 18:28 09/24/19 18:28 Lab Results 09/24/19 09/24/19 09/24/19 Range/Units 18:28 18:28 18:28 WBC 5.9 (4.5-11.0) K/mm3 RBC 5.56 H (3.65-5.03) M/mm3 Hgb 15.2 (11.8-15.2) gm/dl Hct 45.6 (35.5-45.6) % MCV 82 L (84-94) fl MCH 27 L (28-32) pg MCHC 33 (32-34) % RDW 15.8 H (13.2-15.2) % Plt Count 262 (140-440) K/mm3 Lymph % (Auto) 37.5 H (13.4-35.0) % [place] % (Auto) 8.2 H (0.0-7.3) % Eos % (Auto) 0.5 (0.0-4.3) % Baso % (Auto) 0.4 (0.0-1.8) % Lymph # 2.2 (1.2-5.4) K/mm3 [place] # 0.5 (0.0-0.8) K/mm3 Eos # 0.0 (0.0-0.4) K/mm3 Baso # 0.0 (0.0-0.1) K/mm3 Seg Neutrophils % 53.4 (40.0-70.0) % Seg Neutrophils # 3.2 (1.8-7.7) K/mm3 PT 18.7 H (12.2-14.9) Sec. INR 1.59 H (0.87-1.13) APTT 40.0 H (24.2-36.6) Sec. Sodium 138 (137-145) mmol/L Potassium 4.9 (3.6-5.0) mmol/L Chloride 103.5 (98-107) mmol/L Carbon Dioxide 24 (22-30) mmol/L Anion Gap 15 mmol/L BUN 11 (9-20) mg/dL Creatinine 1.0 (0.8-1.5) mg/dL Estimated GFR > 60 ml/min BUN/Creatinine Ratio 11 % Glucose 85 (75-100) mg/dL Calcium 8.9 (8.4-10.2) mg/dL Total Bilirubin (0.1-1.2) mg/dL Direct Bilirubin (0-0.2) mg/dL Indirect Bilirubin mg/dL AST (5-40) units/L ALT (7-56) units/L Alkaline Phosphatase (35-129) units/L Total Protein (6.3-8.2) g/dL Albumin (3.9-5) g/dL Albumin/Globulin Ratio % 09/24/19 Range/Units 19:36 WBC (4.5-11.0) K/mm3 RBC (3.65-5.03) M/mm3 Hgb (11.8-15.2) gm/dl Hct (35.5-45.6) % MCV (84-94) fl MCH (28-32) pg MCHC (32-34) % RDW (13.2-15.2) % Plt Count (140-440) K/mm3 Lymph % (Auto) (13.4-35.0) % [place] % (Auto) (0.0-7.3) % Eos % (Auto) (0.0-4.3) % Baso % (Auto) (0.0-1.8) % Lymph # (1.2-5.4) K/mm3 [place] # (0.0-0.8) K/mm3 Eos # (0.0-0.4) K/mm3 Baso # (0.0-0.1) K/mm3 Seg Neutrophils % (40.0-70.0) % Seg Neutrophils # (1.8-7.7) K/mm3 PT (12.2-14.9) Sec. INR (0.87-1.13) APTT (24.2-36.6) Sec. Sodium (137-145) mmol/L Potassium (3.6-5.0) mmol/L Chloride (98-107) mmol/L Carbon Dioxide (22-30) mmol/L Anion Gap mmol/L BUN (9-20) mg/dL Creatinine (0.8-1.5) mg/dL Estimated GFR ml/min BUN/Creatinine Ratio % Glucose (75-100) mg/dL Calcium (8.4-10.2) mg/dL Total Bilirubin 0.50 (0.1-1.2) mg/dL Direct Bilirubin < 0.2 (0-0.2) mg/dL Indirect Bilirubin 0.3 mg/dL AST 22 (5-40) units/L ALT 15 (7-56) units/L Alkaline Phosphatase 62 (35-129) units/L Total Protein 8.0 (6.3-8.2) g/dL Albumin 4.3 (3.9-5) g/dL Albumin/Globulin Ratio 1.2 % - Radiology Data Radiology results: report reviewed - Medical Decision Making Disposition was delayed due to distended timeframe between ordering of the ultrasound and it being completed. Repeat examination at 1:15 AM the patient has pounding posterior tibialis and dorsalis pedis pulses Critical care attestation.: If time is entered above; I have spent that time in minutes in the direct care of this critically ill patient, excluding procedure time. ED Disposition Clinical Impression: Foot pain, left, Protein C deficiency Disposition: TO HOME OR SELFCARE Is pt being admited?: No Does the pt Need Aspirin: No Condition: Stable Additional Instructions: return if worse Referrals: PRIMARY CARE, [Primary Care Provider] - 3-5 Days [facility] [Provider Group] - 3-5 Days [facility] [Provider Group] - 3-5 Days Time of Disposition: 01:21
--- NOTE | 2019-09-25 00:52 | Vascular Lab Report ---
DUPLEX DOPPLER LOWER EXTREMITY VEINS, LEFT INDICATION: pain h/o dvt. Left lower extremity pain and swelling TECHNIQUE: Duplex doppler imaging was performed through the veins of the left lower extremity using venous compr ession and other maneuvers. COMPARISON: None available. FINDINGS: Common Femoral vein: Negative. Superficial Femoral vein: Negative. Popliteal vein: Negative. Calf veins: Negative. Additional findings: None. IMPRESSION: 1. No sonographic evidence for DVT in the left lower extremity. Signer Name: Kishan Torre MD Signed: 09/25/2019 12:47 AM Workstation Name: [id number]
[2019-09-25 02:17] VITALS: BP 138/87
== END 2019-09-25 01:45 | disposition home or self-care (01) ==
LOC: ED 17:53
DX: M79.672 Pain in left foot (principal); E54 Ascorbic acid deficiency; Z86.718 Personal history of other venous thrombosis and embolism; Z79.01 Long term (current) use of anticoagulants; Z86.711 Personal history of pulmonary embolism; Z79.899 Other long term (current) drug therapy; Z88.0 Allergy status to penicillin
CPT/HCPCS: 36415; 80048; 80076; 85025; 85610; 85730

== ENCOUNTER 2021-03-30 17:33 | Emergency (ER) | payer MEDICAID ==
[2021-03-30 18:36] VITALS: BP 123/80
--- NOTE | 2021-03-30 19:07 | Emergency Department Report ---
ED Eye Problem HPI - General Chief complaint: Eye Problems Stated complaint: RIGHT EYE REDNESS Source: patient Mode of arrival: Ambulatory Limitations: No Limitations - History of Present Illness Initial comments: 30-year-old male presents to the ER today with complaints of right eye redness, itching and soreness. Patient states that his symptoms started mildly about 3 weeks ago but had been getting worse. Patient states that about 2 weeks ago he went to an urgent care and he was diagnosed with conjunctivitis and was prescribed ofloxacin eyedrops which she was to use 2 drops 3 times a day as well as what he describes as a steroid pack. Patient states that while taking the steroid pack it seemed like his symptoms were improving but 3 to 4 days after stopping the steroid pack he started having increasing redness to the eye despite still using the drops. He states that he completed the drops about 2 days ago. He reports increased tearing to the right eye and some crusting to the eyelid but states that he has not had any significant mucus drainage from the eye or matting. She denies any injury to his eye. He does not do any welding or grinding. He does not wear contacts. He reports no vision changes. He states that he went to an leaf sorter today office and saw a Dr. Inocencia Thomas, and he states that she did a thorough exam of his eye and was diag nosed with anterior scleritis versus episcleritis and was referred to see an outreach analyst at [facility]. He states leaf sorter recommended that he use Systane eyedrops until he can see the outreach analyst. He is scheduled to see his outreach analyst tomorrow 830. Patient states that the reason he is here is because he wanted to get lab test done. According to the referral sheet that was given to him from the leaf sorter office one of the recommendation was for lab test but he states that when he called outreach analyst office that he supposed to see tomorrow they said that they do not do blood work. chief complaint: eye pain, eye redness -: week(s) (3) Onset Description: gradual - Related Data Home Medications Medication Instructions Recorded Confirmed Last Taken FLUoxetine HCL [PROzac] 40 mg PO QDAY 01/21/18 03/19/19 01/20/18 Rivaroxaban [Xarelto] 20 mg PO QDAY 01/21/18 03/19/19 01/20/18 diphenhydrAMINE [Benadryl CAP] 50 mg PO QHS PRN 01/21/18 03/19/19 01/20/18 traZODone [Desyrel] 200 mg PO QHS 01/21/18 03/19/19 01/20/18 Allergies Allergy/AdvReac Type Severity Reaction Status Date / Time Penicillins Allergy Swelling Verified 03/19/19 13:07 ED Review of Systems ROS: Stated complaint: RIGHT EYE REDNESS Other details as noted in HPI Constitutional: denies: chills, fever Eyes: eye pain, eye discharge. denies: vision change ENT: denies: ear pain, throat pain, dental pain, hearing loss, epistaxis, congestion Respiratory: denies: cough, orthopnea, shortness of breath, SOB with exertion, SOB at rest, stridor, wheezing Cardiovascular: denies: chest pain, palpitations Gastrointestinal: denies: abdominal pain, nausea, vomiting, diarrhea, constipation, hematemesis, melena, hematochezia Genitourinary: denies: urgency, dysuria, frequency, hematuria, discharge, testicular pain, testicular mass Musculoskeletal: denies: back pain, joint swelling, arthralgia Skin: denies: rash, lesions, change in color, change in hair/nails, pruritus Neurological: denies: numbness, paresthesias, confusion, abnormal gait, vertigo Psychiatric: denies: anxiety, depression, auditory hallucinations, visual hallucinations, homicidal thoughts, suicidal thoughts Hematological/Lymphatic: denies: easy bleeding, swollen glands ED Past Medical Hx - Past Medical History Previous Medical History?: Yes Hx Deep Vein Thrombosis: Yes (PE, DVT) Hx Pulmonary Embolism: Yes Hx Psychiatric Treatment: Yes (depression) Additional medical history: Protein C Deficiency - Surgical History Past Surgical History?: Yes Additional Surgical History: Samantha ocampo 2013 - Social History Smoking Status: Never Smoker Substance Use Type: None - Medications Home Medications: Home Medications Medication Instructions Recorded Confirmed Last Taken Type FLUoxetine HCL [PROzac] 40 mg PO QDAY 01/21/18 03/19/19 01/20/18 History Rivaroxaban [Xarelto] 20 mg PO QDAY 01/21/18 03/19/19 01/20/18 History diphenhydrAMINE [Benadryl CAP] 50 mg PO QHS PRN 01/21/18 03/19/19 01/20/18 History traZODone [Desyrel] 200 mg PO QHS 01/21/18 03/19/19 01/20/18 History ED Physical Exam - General Limitations: No Limitations General appearance: alert, in no apparent distress - Head Head exam: Present: atraumatic, normocephalic, normal inspection - Eye Eye exam: Present: PERRL, EOMI, conjunctival injection (Right eye). Absent: scleral icterus, nystagmus, periorbital swelling, periorbital tenderness Pupils: Present: normal accommodation - Expanded Eye Exam Expanded Sclera/Conjunctival: Injection: Right - Neck Neck exam: Present: normal inspection, full ROM - Respiratory Respiratory exam: Absent: respiratory distress - Cardiovascular Cardiovascular Exam: Present: regular rate - Neurological Exam Neurological exam: Present: alert, oriented X3, CN II-XII intact, normal gait - Psychiatric Psychiatric exam: Present: normal affect, normal mood - Skin Skin exam: Present: intact ED Course Vital Signs 03/30/21 18:34 Temperature 98.0 F Pulse Rate 79 Respiratory 18 Rate Blood Pressure 123/80 [Right] O2 Sat by Pulse 99 Oximetry ED Medical Decision Making - Lab Data Result diagrams: 03/30/21 19:16 03/30/21 19:16 - Medical Decision Making Discussed lab results with patient. He was given a copy to take with him to his appointment tomorrow. Reassured patient that he is going in the right direction, he saw an leaf sorter today who has referred him to see an outreach analyst tomorrow. At this time there is nothing further to do from an emergency room standpoint. Recommend that he continues using the Systane eyedrop and keep his appointment with the outreach analyst tomorrow at 830 and he can bring the lab work with him. She expressed understanding of instructions and agree with plan. Patient was stable at time of discharge. Critical care attestation.: If time is entered above; I have spent that time in minutes in the direct care of this critically ill patient, excluding procedure time. ED Disposition Clinical Impression: Scleritis and episcleritis Disposition: DC- TO HOME OR SELFCARE Is pt being admited?: No Does the pt Need Aspirin: No Condition: Stable Instructions: Scleritis and Episcleritis Additional Instructions: I recommend that you continue using the systane eye drops prescribed for you by the leaf sorter and keep your appointment with the outreach analyst tomorrow 830. You can bring the lab results with you. Return to the ER if your symptoms changes or worsens in any way. Referrals: [facility] [Other] - 03/31/21 Time of Disposition: 20:05
[2021-03-30 19:30] LABS: Basophils % (Auto) 0.4 % (0.0-1.8); Eosinophils # (Auto) 0.1 K/mm3 (0.0-0.4); Eosinophils % (Auto) 1.6 % (0.0-4.3); Hematocrit 47.2 % (35.5-45.6); Hemoglobin 15.9 gm/dl (11.8-15.2); Lymphocytes # (Auto) 1.7 K/mm3 (1.2-5.4); Lymphocytes % (Auto) 24.7 % (13.4-35.0); Mean Corpuscular HGB Conc 34 % (32-34); Mean Corpuscular Volume 87 fl (84-94); Monocytes # (Auto) 0.6 K/mm3 (0.0-0.8); Monocytes % (Auto) 9.2 % (0.0-7.3); Platelet Count 247 K/mm3 (140-440); Red Blood Count 5.42 M/mm3 (3.65-5.03); Red Cell Distribution Width 15.5 % (13.2-15.2)
[2021-03-30 19:55] LABS: Alanine Aminotransferase 19 units/L (7-56); Albumin 4.1 g/dL (3.9-5); BUN/Creatinine Ratio 12; Blood Urea Nitrogen 11 mg/dL (9-20); Calcium 8.9 mg/dL (8.4-10.2); Hemolysis Index 15
== END 2021-03-30 20:30 | disposition home or self-care (01) ==
LOC: ED 17:33
DX: H15.001 Unspecified scleritis, right eye (principal); H15.101 Unspecified episcleritis, right eye; F32.9 Major depressive disorder, single episode, unspecified; Z86.718 Personal history of other venous thrombosis and embolism; Z86.711 Personal history of pulmonary embolism; Z98.890 Other specified postprocedural states; Z79.899 Other long term (current) drug therapy; Z88.0 Allergy status to penicillin
CPT/HCPCS: 36415; 80053; 85025

== ENCOUNTER 2021-10-27 22:36 | Emergency (ER) | payer MEDICAID ==
[2021-10-28 01:24] LABS: Basophils # (Auto) 0.1 K/mm3 (0.0-0.1); Basophils % (Auto) 1.2 % (0.0-1.8); Eosinophils % (Auto) 0.1 % (0.0-4.3); Hematocrit 43.1 % (35.5-45.6); Hemoglobin 13.8 gm/dl (11.8-15.2); Mean Corpuscular HGB Conc 32 % (32-34); Mean Corpuscular Volume 86 fl (84-94); Monocytes # (Auto) 0.6 K/mm3 (0.0-0.8); Monocytes % (Auto) 7.1 % (0.0-7.3); Platelet Count 283 K/mm3 (140-440); Red Blood Count 4.99 M/mm3 (3.65-5.03); Red Cell Distribution Width 15.3 % (13.2-15.2)
[2021-10-28 01:27] LABS: BUN/Creatinine Ratio 6; Blood Urea Nitrogen 5 mg/dL (9-20); Calcium 8.5 mg/dL (8.4-10.2); Hemolysis Index 0
--- NOTE | 2021-10-28 01:30 | Emergency Department Report ---
HPI - General Chief Complaint: Psych Time Seen by Provider: 10/28/21 00:52 - HPI HPI: 31-year-old -[place] male presents to the emergency department with a complaint of a 2-week history of depression and a 1 day history of suicidal ideations without a plan. He denies being diagnosed with any type of depression disorder but appears to have been on trazodone in the past. He denies any visual or auditory hallucinations, or any homicidal ideations. He has a history of protein C deficiency and is on Xarelto with a previous history of PE and DVT. ED Past Medical Hx - Past Medical History Hx Deep Vein Thrombosis: Yes (PE, DVT) Hx Pulmonary Embolism: Yes Hx Psychiatric Treatment: Yes (depression) Additional medical history: Protein C Deficiency - Surgical History Additional Surgical History: Samantha ocampo 2013 - Social History Smoking Status: Unknown if ever smoked Substance Use Type: None - Medications Home Medications: Home Medications Medication Instructions Recorded Confirmed Last Taken Type FLUoxetine HCL [PROzac] 40 mg PO QDAY 01/21/18 03/19/19 01/20/18 History Rivaroxaban [Xarelto] 20 mg PO QDAY 01/21/18 03/19/19 01/20/18 History diphenhydrAMINE [Benadryl CAP] 50 mg PO QHS PRN 01/21/18 03/19/19 01/20/18 History traZODone [Desyrel] 200 mg PO QHS 01/21/18 03/19/19 01/20/18 History ED Review of Systems ROS: Stated complaint: SUICIDAL IDEATIONS Other details as noted in HPI Comment: All other systems reviewed and negative Constitutional: denies: chills, fever Respiratory: denies: cough, shortness of breath Cardiovascular: denies: chest pain, edema Gastrointestinal: denies: abdominal pain, vomiting Musculoskeletal: denies: back pain, arthralgia Neurological: denies: headache, weakness Psychiatric: depression, suicidal thoughts. denies: auditory hallucinations, visual hallucinations, homicidal thoughts Physical Exam - Physical Exam Vital Signs: Vital Signs 10/27/21 10/28/21 23:55 00:54 Temperature 98.7 F 98.7 F Pulse Rate 108 H 80 Respiratory 16 18 Rate Blood Pressure 142/90 126/89 [Left] O2 Sat by Pulse 98 96 Oximetry Physical Exam: GENERAL: The patient is well-developed well-nourished. HENT: Normocephalic. Atraumatic. Patient has moist mucous membranes. EYES: Extraocular motions are intact. NECK: Supple. Trachea is midline. CHEST/LUNGS: Clear to auscultation. There is no respiratory distress noted. HEART/CARDIOVASCULAR: Regular. There is no tachycardia. There is no murmur. ABDOMEN: Abdomen is soft, nontender. Patient has normal bowel sounds. SKIN: Skin is warm and dry. NEURO: The patient is awake, alert, and oriented. The patient is cooperative. Normal speech. PSYCH: Patient has a flat affect. MUSCULOSKELETAL: There is no tenderness or deformity. ED Course Vital Signs 10/27/21 10/28/21 23:55 00:54 Temperature 98.7 F 98.7 F Pulse Rate 108 H 80 Respiratory 16 18 Rate Blood Pressure 142/90 126/89 [Left] O2 Sat by Pulse 98 96 Oximetry ED Medical Decision Making - Lab Data Result diagrams: 10/28/21 00:40 10/28/21 00:40 Lab Results 10/28/21 10/28/21 10/28/21 Range/Units 00:40 00:40 00:40 WBC 8.4 (4.5-11.0) K/mm3 RBC 4.99 (3.65-5.03) M/mm3 Hgb 13.8 (11.8-15.2) gm/dl Hct 43.1 (35.5-45.6) % MCV 86 (84-94) fl MCH 28 (28-32) pg MCHC 32 (32-34) % RDW 15.3 H (13.2-15.2) % Plt Count 283 (140-440) K/mm3 Lymph % (Auto) 24.0 (13.4-35.0) % [place] % (Auto) 7.1 (0.0-7.3) % Eos % (Auto) 0.1 (0.0-4.3) % Baso % (Auto) 1.2 (0.0-1.8) % Lymph # (Auto) 2.0 (1.2-5.4) K/mm3 [place] # (Auto) 0.6 (0.0-0.8) K/mm3 Eos # (Auto) 0.0 (0.0-0.4) K/mm3 Baso # (Auto) 0.1 (0.0-0.1) K/mm3 Seg Neutrophils % 67.6 (40.0-70.0) % Seg Neutrophils # 5.7 (1.8-7.7) K/mm3 Sodium 140 (137-145) mmol/L Potassium 3.2 L (3.6-5.0) mmol/L Chloride 104.5 (98-107) mmol/L Carbon Dioxide 23 (22-30) mmol/L Anion Gap 16 mmol/L BUN 5 L (9-20) mg/dL Creatinine 0.8 (0.8-1.3) mg/dL Estimated GFR > 60 ml/min BUN/Creatinine Ratio 6 % Glucose 102 H (75-100) mg/dL Calcium 8.5 (8.4-10.2) mg/dL Salicylates < 0.3 L (2.8-20.0) mg/dL Acetaminophen (10.0-30.0) ug/mL Plasma/Serum Alcohol (0-0.07) % 10/28/21 10/28/21 Range/Units 00:40 00:40 WBC (4.5-11.0) K/mm3 RBC (3.65-5.03) M/mm3 Hgb (11.8-15.2) gm/dl Hct (35.5-45.6) % MCV (84-94) fl MCH (28-32) pg MCHC (32-34) % RDW (13.2-15.2) % Plt Count (140-440) K/mm3 Lymph % (Auto) (13.4-35.0) % [place] % (Auto) (0.0-7.3) % Eos % (Auto) (0.0-4.3) % Baso % (Auto) (0.0-1.8) % Lymph # (Auto) (1.2-5.4) K/mm3 [place] # (Auto) (0.0-0.8) K/mm3 Eos # (Auto) (0.0-0.4) K/mm3 Baso # (Auto) (0.0-0.1) K/mm3 Seg Neutrophils % (40.0-70.0) % Seg Neutrophils # (1.8-7.7) K/mm3 Sodium (137-145) mmol/L Potassium (3.6-5.0) mmol/L Chloride (98-107) mmol/L Carbon Dioxide (22-30) mmol/L Anion Gap mmol/L BUN (9-20) mg/dL Creatinine (0.8-1.3) mg/dL Estimated GFR ml/min BUN/Creatinine Ratio % Glucose (75-100) mg/dL Calcium (8.4-10.2) mg/dL Salicylates (2.8-20.0) mg/dL Acetaminophen 5.0 L (10.0-30.0) ug/mL Plasma/Serum Alcohol < 0.01 (0-0.07) % - Medical Decision Making This patient presents with a 2-week history of depression and a 1 day history of suicidal ideations without a plan. For this reason he has been placed on a 1013 and an ED hold. Labs have been mostly unremarkable thus far including CBC, metabolic panel, blood alcohol level, other than some mild hypokalemia with a potassium level of 3.2. He was given a dose of potassium chloride. We are still waiting for a urine sample for urinalysis and UDS. Vital signs reassuring including being afebrile. Patient will be evaluated by the psychiatric team to assist with further disposition. This patient is medically cleared for psychiatric placement. Critical Care Time: No Critical care attestation.: If time is entered above; I have spent that time in minutes in the direct care of this critically ill patient, excluding procedure time. ED Disposition Clinical Impression: Depression, Suicidal ideations, Hypokalemia Disposition: 30 STILL A PATIENT Is pt being admited?: No Condition: Stable Time of Disposition: 04:54
[2021-10-28] MEDS ORDERED: POTASSIUM CHLORIDE ER 20 MEQ TAB PO ONE (04:51)
[2021-10-28] MEDS ORDERED: RIVAROXABAN 20 MG TAB PO SCH (08:00)
--- NOTE | 2021-10-28 09:48 | Consultation ---
History of Present Illness - Reason for Consult Consult date: 10/28/21 Reason for consult: SI - History of Present Psychiatric Illness The patient was seen today. He says he presented to the ER for suicidal thoughts. He currently denies SI during the evaluation, but states "I'm still a little depressed." He denies any illicit drug use, or alcohol. The patient also denies any past history of psych although he's been seen in the past here for mental health issues. He also denies any psych medication history. He states "I don't take meds" when asked. He denies hallucinations of any kind. PAST PSYCHIATRIC HISTORY: Diagnose: Denies Suicide attempts or Self-harm behavior: Denies Prior psychiatric hospitalizations: Denies Substance Abuse history: Denies Previous psychiatric medications tried: Denies Outpatient treatment: Denies PAST MEDICAL HISTORY: PE Family Psychiatric History: None reported or documented SOCIAL HISTORY Marital Status: Single Living Arrangements: with a roommate Employment Status: Employed Access to guns/weapons: Denies Education: History of Abuse: Denies Legal History: Denies REVIEW OF SYSTEMS Constitutional: Negative for weight loss ENT: Negative for stridor Respiratory: Negative for cough or hemoptysis All other systems reviewed and are negative MENTAL STATUS EXAMINATION General Appearance and Behavior: Age appropriate, good hygiene, wearing appropriate clothes. calm, cooperative. Cooperation: Cooperative Psychomotor Behavior: Psychomotor normal Mood: a little depressed Affect and affective range: congruent with stated mood Thought Process: goal directed Thought Content: None Speech: normal tone and pace Suicidal Ideation: Denies Homicidal Ideation: Denies Hallucinations: Denies Delusions: None elicited Impulse Control: Limited Insight and Judgment: Limited insight and poor judgment Memory: Limited Attention: attentive Orientation: a/o x 3 Assessment (1) Major Depressive Disoder Treatment Plan d/c 1013 Zoloft 25mg po daily Sitter: per primary Medical: per primary Disposition: Do not recommend acute psychiatric inpatient treatment. The patient understands that if any SI/HI or any fear of endangerment arise she is to seek immediate assistance. The m1 armor crewman to further discuss safety plan and give the patient outpatient resources The patient to follow up in 7 to 14 days with outpatient psych Will sign off. Thanks Case staffed with Dr. Grewal Medications and Allergies Allergies Allergy/AdvReac Type Severity Reaction Status Date / Time Penicillins Allergy Swelling Verified 03/19/19 13:07 Home Medications Medication Instructions Recorded Confirmed Last Taken Type FLUoxetine HCL [PROzac] 40 mg PO QDAY 01/21/18 03/19/19 01/20/18 History Rivaroxaban [Xarelto] 20 mg PO QDAY 01/21/18 03/19/19 01/20/18 History diphenhydrAMINE [Benadryl CAP] 50 mg PO QHS PRN 01/21/18 03/19/19 01/20/18 History traZODone [Desyrel] 200 mg PO QHS 01/21/18 03/19/19 01/20/18 History Sertraline [Zoloft] 25 mg PO QDAY #30 tab 10/28/21 Unknown Rx Active Meds: Active Medications Rivaroxaban (Rivaroxaban 20 Mg Tab) 20 mg PO QDDIAB [facility] Mental Status Exam - Vital signs Last Vital Signs Temp 98.7 F 10/28/21 00:54 Pulse 80 10/28/21 00:54 Resp 18 10/28/21 00:54 BP 126/89 10/28/21 00:54 Pulse Ox 96 10/28/21 00:54 Results Result Diagrams: 10/28/21 00:40 10/28/21 00:40 Abnormal lab results 10/28/21 10/28/21 10/28/21 Range/Units 00:40 00:40 00:40 RDW 15.3 H (13.2-15.2) % Potassium 3.2 L (3.6-5.0) mmol/L BUN 5 L (9-20) mg/dL Glucose 102 H (75-100) mg/dL Salicylates < 0.3 L (2.8-20.0) mg/dL Acetaminophen (10.0-30.0) ug/mL 10/28/21 Range/Units 00:40 RDW (13.2-15.2) % Potassium (3.6-5.0) mmol/L BUN (9-20) mg/dL Glucose (75-100) mg/dL Salicylates (2.8-20.0) mg/dL Acetaminophen 5.0 L (10.0-30.0) ug/mL All other labs normal.
[2021-10-28] MEDS ORDERED: NON-FORMULARY EACH (Rivaroxaban 20 MG Tablet) PO SCH (10:00)
--- NOTE | 2021-10-28 11:07 | Emergency Department Report ---
Blank Doc - Documentation Documentation: Patient was still slightly depressed this morning but did not have active suic idal or homicidal thoughts. There is no evidence of acute delusion or psychosis. Patient had been medically cleared. Patient was cleared from psychiatric perspective for discharge and the patient is amenable to this.
[2021-10-28 11:23] VITALS: BP 109/76
== END 2021-10-28 12:13 | disposition home or self-care (01) ==
LOC: ED 22:36
DX: U07.1 COVID-19 (principal); F32.A Depression, unspecified; R45.851 Suicidal ideations; E87.6 Hypokalemia; Z98.890 Other specified postprocedural states; Z88.0 Allergy status to penicillin
CPT/HCPCS: 36415; 80048; 85025; 99284; U0003; 80320; G0480

== ENCOUNTER 2022-01-25 01:25 | Emergency (ER) | payer MEDICAID | END 2022-01-25 01:34 | disposition left against medical advice (07) | LOC: ED 01:25 | DX: R07.9 Chest pain, unspecified (principal); Z53.21 Procedure and treatment not carried out due to patient leaving prior to being seen by health care provider ==